=== PATIENT | male | born 1950 | race Caucasian/White ===

== ENCOUNTER 2023-02-15 13:37 | Emergency (ER) | payer OTHER, SELFPAY ==
[2023-02-15 14:16] VITALS: BP 165/80; PULSE 86; RESP 18; TEMP 36.5; O2SAT 99; BMI 22.4
[2023-02-15 14:36] LABS: Add Manual Diff / Slide Review NO; Basophils Absolute Auto 100 /uL (0-100); Basophils Percent Auto 0.7 % (0-2); Eosinophils Absolute Auto 0 /uL (0-450); Eosinophils Percent Auto 0.2 % (2-4); Hematocrit 41.8 % (41-53); Hemoglobin 14.3 g/dL (13.5-17.5); Lymphocytes Absolute Auto 2400 /uL (1100-4500); Lymphocytes Percent Auto 12.7 % (25-40); Mean Corpuscular HGB Conc 34.1 % (30-36); Mean Corpuscular Hemoglobin 29.5 PG (26-34); Mean Corpuscular Volume 86.5 fL (80-100); Monocytes Absolute Auto 1200 /uL (0-900); Monocytes Percent Auto 6.4 % (3-14); Neutrophils Absolute Auto 15200 /uL (1500-7000); Platelet Count 268 X10^3/uL (150-400); Red Blood Cell Count 4.83 X10^6/uL (4.5-5.9); Red Cell Distribution Width 13.4 % (11.6-14.8)
[2023-02-15 14:43] LABS: Alanine Aminotransferase 23 IU/L (<50); Albumin 4.4 g/dL (3.5-5.0); Albumin Globulin Ratio 1.2 (1.0-2.8); Alkaline Phosphatase 87 U/L (38-126); Aspartate Aminotransferase 21 IU/L (17-59); Bilirubin Total 0.5 mg/dL (0.2-1.3); Blood Urea Nitrogen 12 mg/dL (9-20); Calcium 8.8 mg/dL (8.4-10.2); Carbon Dioxide 23 mmol/L (22-32); Chloride 105 mmol/L (98-107); Estimated Glomerular Filt Rate > 60 mL/min (>60); Globulin 3.6 g/dL (1.7-4.1); Glucose 148 mg/dL (80-110); HEMOLYSIS < 15 (0-50); Lipase 72 U/L (23-300); Potassium 3.8 mmol/L (3.4-5.1); Sodium 137 mmol/L (137-145)
--- NOTE | 2023-02-15 17:20 | ED_ITS ---
HPI - Abdominal Pain General Chief Complaint: Abdominal Pain Stated Complaint: ABD/STOMACH PAIN Time Seen by Provider: 02/15/23 17:12 Source: patient Mode of arrival: Ambulatory History of Present Illness HPI narrative: Patient here with for complaints of left-sided abdominal pain for the past day. Patient has history of pancreatitis. Not alcohol induced. Patient has had pancreatitis off and on for the past 6 years. He states this feels slightly different as it is lower and more to the left. No nausea or vomiting no urinary complaints. No diarrhea no black or bloody stools. History of diverticulosis but no history of diverticulitis. Patient in no distress. Related Data Previous Rx's Medication Instructions Recorded hydrocodone 5 mg-acetaminophen 325 1 tab PO Q6H PRN pain #20 tabs 02/15/23 mg tablet ondansetron 4 mg disintegrating 4 mg PO Q8H PRN nausea and 02/15/23 tablet vomiting #10 tabs Allergies Allergy/AdvReac Type Severity Reaction Status Date / Time No Known Drug Allergies Allergy Verified 02/15/23 14:16 Review of Systems Review of Systems Narrative: GENERAL: negative chills, fatigue, malaise, fever, sweats. HEENT: negative sinus pain, ear pain, sore throat RESPIRATORY: negative dyspnea, cough CARDIOVASCULAR: negative chest pain, palpitations GASTROINTESTINAL: negative nausea, vomiting, positive abdominal pain : negative dysuria, frequency, hematuria MUSCULOSKELETAL: negative muscle or bony pain SKIN: negative rash, skin lesions NEUROLOGIC: negative weakness, numbness ROS Unobtainable: All systems reviewed & are unremarkable except as noted in HPI and below Patient History Social History Smoking Status: Never smoker Smoking Status: Never smoker Substance Use Type: marijuana Exam Narrative Exam Narrative: GENERAL: in no distress, not toxic not dyspneic HEAD: Normocephalic. EYES: Pupils equal round ENT: Mucous membranes moist. NECK: Trachea midline. CARDIOVASCULAR: Regular rate and rhythm without murmurs RESPIRATORY: Clear to auscultation. Breath sounds equal bilaterally. No wheezes, rales, or rhonchi. GASTROINTESTINAL: Abdomen soft, abdomen soft however there is tenderness to left lower quadrant and left upper quadrant. There is epigastric tenderness. No peritoneal signs. Bowel sounds are present. EXTREMITIES: No gross deformities. BACK: No flank tenderness. NEURO: AOx4. SKIN: Warm and dry PSYCH: Not anxious, is cooperative Initial Vital Signs Initial Vital Signs: Vital Signs Temperature 97.7 F 02/15/23 14:16 Pulse Rate 86 02/15/23 14:16 Respiratory Rate 18 02/15/23 14:16 Blood Pressure 165/80 H 02/15/23 14:16 Pulse Oximetry 99 02/15/23 14:16 Oxygen Delivery Method Room Air 02/15/23 14:16 Course Orders Ordered: Discontinued Medications Sodium Chloride (Normal Saline 0.9%) 1,000 mls @ 1,000 mls/hr IV BOLUS ONE Stop: 02/15/23 18:23 Last Infusion: 02/15/23 18:38 Dose: 0 mls/hr Documented By: Admin: 02/15/23 17:36 Dose: 1,000 mls/hr Documented By: CHRIS Morphine Sulfate (Morphine 4 Mg/Ml Inj) 4 mg IV NOW ONE Stop: 02/15/23 17:14 Last Admin: 02/15/23 17:28 Dose: 4 mg Documented By: CHRIS Ondansetron HCl (Ondansetron 4 Mg Odt) 4 mg PO NOW PRN PRN Reason: Nausea And Vomiting Ondansetron HCl (Ondansetron 4 Mg/2 Ml Inj) 4 mg IV NOW PRN PRN Reason: Nausea And Vomiting Ondansetron HCl (Ondansetron 4 Mg/2 Ml Inj) 4 mg IV NOW ONE Stop: 02/15/23 17:14 Last Admin: 02/15/23 17:28 Dose: 4 mg Documented By: CHRIS Vital Signs Vital signs: Vital Signs - 8 hr 02/15/23 14:16 02/15/23 17:27 02/15/23 17:38 Temperature 97.7 F Pulse Rate 86 89 86 Respiratory Rate 18 Blood Pressure 165/80 H Pulse Oximetry 99 97 94 Oxygen Delivery Method Room Air 02/15/23 17:40 02/15/23 17:40 02/15/23 18:00 Temperature Pulse Rate 87 Respiratory Rate Blood Pressure 168/93 H 147/66 H Pulse Oximetry 95 Oxygen Delivery Method 02/15/23 18:00 02/15/23 18:30 02/15/23 18:30 Temperature Pulse Rate 84 84 Respiratory Rate Blood Pressure 150/72 H Pulse Oximetry 95 94 Oxygen Delivery Method MDM - Abdominal Pain Lab Data 02/15/23 14:25 02/15/23 14:25 Labs: Lab Results 02/15/23 02/15/23 02/15/23 Range/Units 14:25 14:25 16:24 WBC 19.0 H (4.5-11.0) X10^3/uL RBC 4.83 (4.5-5.9) X10^6/uL Hgb 14.3 (13.5-17.5) g/dL Hct 41.8 (41-53) % MCV 86.5 (80-100) fL MCH 29.5 (26-34) PG MCHC 34.1 (30-36) % RDW 13.4 (11.6-14.8) % Plt Count 268 (150-400) X10^3/uL Neut % (Auto) 80.0 H (50-75) % Lymph % (Auto) 12.7 L (25-40) % [place] % (Auto) 6.4 (3-14) % Eos % (Auto) 0.2 L (2-4) % Baso % (Auto) 0.7 (0-2) % Neut # (Auto) 85677 H (2683-0784) /uL Lymph # (Auto) 2400 (6920-7248) /uL [place] # (Auto) 1200 H (0-900) /uL Eos # (Auto) 0 (0-450) /uL Baso # (Auto) 100 (0-100) /uL Sodium 137 (137-145) mmol/L Potassium 3.8 (3.4-5.1) mmol/L Chloride 105 (98-107) mmol/L Carbon Dioxide 23 (22-32) mmol/L BUN 12 (9-20) mg/dL Creatinine 0.63 L (0.66-1.25) mg/dL Estimated GFR > 60 (>60) mL/min BUN/Creatinine Ratio 19.0 (6-22) Glucose 148 H (80-110) mg/dL Calcium 8.8 (8.4-10.2) mg/dL Total Bilirubin 0.5 (0.2-1.3) mg/dL AST 21 (17-59) IU/L ALT 23 (<50) IU/L Alkaline Phosphatase 87 (38-126) U/L Total Protein 8.0 (6.3-8.2) g/dL Albumin 4.4 (3.5-5.0) g/dL Globulin 3.6 (1.7-4.1) g/dL Albumin/Globulin Ratio 1.2 (1.0-2.8) Lipase 72 (23-300) U/L Urine RBC 1-5/hpf (0-5/HPF) Urine WBC 1-5/hpf (0-5/HPF) Ur Squamous Epith Cells 1-5 /hpf (0-5/HPF) Urine Bacteria None seen (None) Urine Mucus 1+ H (Negative) Point of care testing: Urine Dip Bedside Urine Glucose 100 mg/dl Bedside Urine Bilirubin - Negative Bedside Urine Ketone - Negative Urine Specific [place] 1.025 Bedside Urine Occult Blood +/- Bedside Urine pH 6.0 Bedside Urine Protein - Negative Bedside Urine Urobilinogen - Negative Bedside Urine Nitrite - Negative Bedside Urine Leukocytes - Negative Esterase Imaging Data CT scan - abdomen/pelvis: Radiologist's Impression: [address] [address] [address] Scan Report Signed Patient: Barbara Cuenca MR#: [id number] : 1950 Acct:[id number] Age/Sex: 72 / M Date of Service: 02/15/23 Loc: ED Accession Number: [id number] ?? Procedure: CT abdomen pelvis w con Ordering Provider: Dionicio Martines MD PROCEDURE:? CT ABDOMEN PELVIS W CON ? INDICATIONS:? IV contrast only/left side abdominal pain ? TECHNIQUE:? After the administration of intravenous contrast, axial sections acquired from the lung bases to the pubic symphysis.? Coronal and sagittal reformats were performed.? For radiation dose reduction, the following was used:? automated exposure control, adjustment of mA and/or kV according to patient size.? ? COMPARISON:? None. ? FINDINGS:? ? Lung bases:? No pleural effusion ? ABDOMEN: Liver:? Subcentimeter focus of enhancement within the peripheral right lobe of the liver (11/13) with subtle adjacent wedge-shaped hyperdensity likely probable transient hepatic attenuation difference. Gallbladder:? Unremarkable.? ? Biliary ducts:? Unremarkable.? ? Pancreas:? Coarse calcifications present at the pancreatic head, possibly intraductal with upstream dilation of the main pancreatic duct present measuring up to 4-5 mm.? The pancreatic body and tail appears atrophic with scattered calcifications also present.? Subtle peripancreatic inflammatory change present without a drainable peripancreatic fluid collection visualized. Spleen:? Unremarkable.? ? Adrenal Glands:? Unremarkable.? ? Kidneys and Ureters:? No hydronephrosis ? Stomach and Bowel:? No evidence of mechanical small bowel obstruction.? Wall thickening of the 2nd portion of the duodenum.? Moderate predominantly sigmoid colonic diverticulosis without evidence of acute diverticulitis. Peritoneum:? No substantial intraperitoneal fluid.? No free air.? ? Abdominal Nodes:? No retroperitoneal or mesenteric adenopathy by size criteria.? Vessels:? Aorta and inferior vena cava are normal in size.? ? PELVIS: Pelvic Organs:? Prostatomegaly Bladder:? Unremarkable.? ? Pelvic Nodes: No enlarged lymph nodes.? ? Bones:? Multilevel degenerative change of the visualized spine. ? ? IMPRESSION:? 1. Findings compatible with acute pancreatitis.? No drainable peripancreatic fluid collection or definite evidence of pancreatic necrosis identified at this time. 2. Pancreatic calcifications are present, a finding that can be seen in the setting of chronic calcific pancreatitis.? Calcifications at the pancreatic head could be intraductal with upstream dilation of the main pancreatic duct present.? Ductal dilation from another etiologies such as an obstructing mass or ductal stricture also po ssible. 3. Wall thickening of the 2nd portion of the duodenum also demonstrated, probably reactive related to changes of acute pancreatitis however correlation for duodenitis/peptic ulcer disease may also be helpful. 4. Small focus of hyperenhancement within the peripheral right lobe of the liver with adjacent probable transient hepatic attenuation difference, not characterizable on this exam, potential small hemangioma but nonspecific.? Attention on follow-up and/or characterization with liver protocol MRI could be obtained as clinically indicated. ? ? Dictated by: Ever Glasgow M.D. on 02/15/2023 at 18:03 ? ? Approved by: Ever Glasgow M.D. on 02/15/2023 at 18:12 ? [facility] Narrative Medical decision making narrative: Patient here with for complaints of left-sided abdominal pain for the past day. Patient has history of pancreatitis. Not alcohol induced. Patient has had pancreatitis off and on for the past 6 years. He states this feels slightly different as it is lower and more to the left. No nausea or vomiting no urinary complaints. No diarrhea no black or bloody stools. History of diverticulosis but no history of diverticulitis. Patient in no distress. After history and exam CBC CMP lipase urinalysis CT abdomen and pelvis morphine Zofran MDM CC: Abdominal pain Complicating co-morbidities: History of pancreatitis Data collected from: Patient and Medical records reviewed: Urine cultures from last 2 visits Differential considered: Includes but not limited to UTI pyelonephritis sepsis Exam documented above, pertinent findings include: Tender left lower quadrant Lab Test results independently reviewed as above. Pertinent findings: WBC 19.0 AST 21 ALT 23 lipase 72 urinalysis negative leukocytes negative nitrates Imaging studies independently reviewed: CT abdomen pelvis acute pancreatitis EKG normal EKG normal sinus rhythm rate 83 Consultations: None indicated Treatments: Morphine Zofran normal saline Re-evaluations: Pain is much better. 6:43 p.m.. Reviewed results with patient and . They have gone through this before and are comfortable for discharge home with pain medication. Nontoxic at discharge. Return precautions reviewed. They desire discharge home Discussion: Appropriate for discharge home. Exam is otherwise reassuring as well as laboratory studies. Patient has been discharged home in the past with pain medication and follow up with his GI doctor. Nontoxic at discharge. Return precautions reviewed with patient and . They desire discharge home Diagnosis: Acute pancreatitis Discharge Plan Departure Patient Disposition: Home Clinical Impression: Pancreatitis Instructions: DI for Pancreatitis Activity Restrictions/Additional Instructions: No driving or operating machinery today or when taking prescribed pain medication. Workup today shows you have recurrent pancreatitis. Please continue diet as instructed by your GI doctor regarding pancreatitis. Keep well hydrated. Return if worse if any questions or concerns Prescriptions: New hydrocodone-acetaminophen 5-325 mg tablet 1 tab PO Q6H PRN (Reason: pain) Qty: 20 0RF ondansetron 4 mg tablet,disintegrating 4 mg PO Q8H PRN (Reason: nausea and vomiting) Qty: 10 0RF Stand Alone Forms: Patient Portal/API
--- NOTE | 2023-02-15 17:24 | DI.CT.S_ITS ---
PROCEDURE: CT ABDOMEN PELVIS W CON INDICATIONS: IV contrast only/left side abdominal pain TECHNIQUE: After the administration of intravenous contrast, axial sections acquired from the lung bases to the pubic symphysis. Coronal and sagittal reformats were performed. For radiation dose reduction, the following was used: automated exposure control, adjustment of mA and/or kV according to patient size. COMPARISON: None. FINDINGS: Lung bases: No pleural effusion ABDOMEN: Liver: Subcentimeter focus of enhancement within the peripheral right lobe of the liver (4/22) with subtle adjacent wedge-shaped hyperdensity likely probable transient hepatic attenuation difference. Gallbladder: Unremarkable. Biliary ducts: Unremarkable. Pancreas: Coarse calcifications present at the pancreatic head, possibly intraductal with upstream dilation of the main pancreatic duct present measuring up to 4-5 mm. The pancreatic body and tail appears atrophic with scattered calcifications also present. Subtle peripancreatic inflammatory change present without a drainable peripancreatic fluid collection visualized. Spleen: Unremarkable. Adrenal Glands: Unremarkable. Kidneys and Ureters: No hydronephrosis Stomach and Bowel: No evidence of mechanical small bowel obstruction. Wall thickening of the 2nd portion of the duodenum. Moderate predominantly sigmoid colonic diverticulosis without evidence of acute diverticulitis. Peritoneum: No substantial intraperitoneal fluid. No free air. Abdominal Nodes: No retroperitoneal or mesenteric adenopathy by size criteria. Vessels: Aorta and inferior vena cava are normal in size. PELVIS: Pelvic Organs: Prostatomegaly Bladder: Unremarkable. Pelvic Nodes: No enlarged lymph nodes. Bones: Multilevel degenerative change of the visualized spine. IMPRESSION: 1. Findings compatible with acute pancreatitis. No drainable peripancreatic fluid collection or definite evidence of pancreatic necrosis identified at this time. 2. Pancreatic calcifications are present, a finding that can be seen in the setting of chronic calcific pancreatitis. Calcifications at the pancreatic head could be intraductal with upstream dilation of the main pancreatic duct present. Ductal dilation from another etiologies such as an obstructing mass or ductal stricture also possible. 3. Wall thickening of the 2nd portion of the duodenum also demonstrated, probably reactive related to changes of acute pancreatitis however correlation for duodenitis/peptic ulcer disease may also be helpful. 4. Small focus of hyperenhancement within the peripheral right lobe of the liver with adjacent probable transient hepatic attenuation difference, not characterizable on this exam, potential small hemangioma but nonspecific. Attention on follow-up and/or characterization with liver protocol MRI could be obtained as clinically indicated. Dictated by: Ever Glasgow M.D. on 02/15/2023 at 18:03 Approved by: Ever Glasgow M.D. on 02/15/2023 at 18:12
[2023-02-15 17:27] VITALS: PULSE 89; O2SAT 97
[2023-02-15] MEDS: ONDANSETRON 4 MG/2 ML INJ IV (17:28)
[2023-02-15] MEDS: MORPHINE 4 MG/ML INJ IV (17:28)
[2023-02-15 17:36] LABS: Bacteria Urine None Seen; Mucus Urine 1+ (Negative); RBC Urine 1-5/HPF (0-5/HPF); Squamous Epithelial Cell Urine 1-5 /HPF (0-5/HPF); WBC Urine 1-5/HPF (0-5/HPF)
[2023-02-15] MEDS: SODIUM CHLORIDE 0.9% 1,000 ML 1000 ML IV (17:36)
[2023-02-15 17:38] VITALS: PULSE 86; O2SAT 94
[2023-02-15 17:40] VITALS: BP 168/93; PULSE 87; O2SAT 95
[2023-02-15 18:00] VITALS: BP 147/66; PULSE 84; O2SAT 95
[2023-02-15 18:30] VITALS: BP 150/72; PULSE 84; O2SAT 94
== END 2023-02-15 18:57 | disposition home or self-care (01) ==
PROVIDERS: Emergency Provider Emergency Medicine
DX: K85.90 Acute pancreatitis without necrosis or infection, unspecified (principal)
CPT/HCPCS: 36415; 74177; 80053; 81003; 81015; 83690; 85025; 93005; 96361; 96374; 96375; 99284; J2270; J2405